=== PATIENT | female | born 1955 | race Caucasian/White ===

== ENCOUNTER 2019-05-01 16:51 | Emergency (ER) | payer SELFPAY ==
[2019-05-01 17:08] VITALS: BP 149/96; PULSE 64; RESP 16; TEMP 36.3; O2SAT 100
--- NOTE | 2019-05-01 17:30 | ED.GENADUL_ITS ---
Discharge Plan Disposition Patient Disposition: HOME Condition: Stable Discharge Details Chief Complaint: Orthopedic Clinical Impression: Patellar contusion ED Provider: Miguel Andersen Discharge Instructions Instructions: Contusion in Adults (ED) Additional Instructions: Ice to reduce pain and swelling. Bryson bandage for compression while awake and out of bed, remove at bedtime. Tylenol and/or ibuprofen as needed for pain. You may develop bruising. Return for increased discomfort or any other acute concerns. Medical Decision Making 63-year-old female slipped and fell on the ice, landing on a flexed left knee and striking her anterior patella. Since that time is a dull, achy, constant pain is worse with movement but has been able to walk. Denies other injury. She has patellar tenderness on exam but no other evidence of laxity or other injury. Referred for x-ray without evidence of acute underlying bony injury. Will treat with compression of Bryson bandage, conservative measures at home. She understands indications to seek a reevaluation. HPI General Mode of arrival: ambulatory . Date/Time Provider Initiated Documentation: 05/01/19 17:13 . Limitations to Documentation: no limitations . Information obtained by: patient . History of Present Illness 63 year old F presents to the emergency department with the chief complaint of L knee/patella pain after slip and fall, described as moderate, Quality is described as dull, and is localized to the left and lower extremity. Patient reports no radiation. Patient started experiencing this hour(s) and it has been consta nt. Rest improves symptom(s), Movement worsens symptoms . Patient notes denies chest pain, headaches, syncope and weakness. Patient did receive the following treatments prior to arrival, none Related Data Allergies Allergy/AdvReac Type Severity Reaction Status Date / Time Penicillins Allergy Severe Other (See Unverified 05/01/19 17:13 Comment) zolpidem [From Ambien] AdvReac Severe Psychosis Unverified 05/01/19 17:13 General Stated Complaint: Orthopedic FOREIGN: 4 Review of Systems Narrative: 4 systems reviewed and otherwise neg [facility] Medical History Cholecystectomy planned (Acute) Diabetes mellitus (Chronic) Fibromyalgia (Acute) Hypotension (Acute) Insomnia (Acute) Surgical History (Updated 05/01/19 @ 17:16 by Les Lerma) H/O arthroscopic knee surgery (Chronic) H/O oophorectomy (Acute) H/O: hysterectomy (Chronic) History of appendectomy (Chronic) History of lumbar fusion (Acute) History of Yessy-en-Y gastric bypass (Acute) Tubal ligation status (Acute) Tubal ligation status (Acute) Social History Smoking/Tobacco Use Status: Never Alcohol Intake: never Substance use type: does not use Exam Narrative Exam Narrative: GEN: awake, alert, oriented 3. Pleasant, well groomed, interactive. HEAD: Normocephalic, atraumatic ENT: Mucous membranes moist, oropharynx unremarkable, External ear exam unremarkable EYES: PERRL, EOMI NECK: Full ROM, no LUIS DANIEL, no menigismus Chest nontender, back nontender EXT: Full ROM, motor 5 out of 5 in the bilateral lower extremity. The left patella is tender but without crepitus. No laxity of the joint appreciated. Neuro: Grossly normal neurologic exam, conversant, interactive. Psych: Speech fluent, thoughts congruent, affect normal Course Vital Signs Vital signs: Vital Signs Temperature 36.3 C L 05/01/19 17:08 Pulse 64 05/01/19 17:08 Respiratory Rate 16 05/01/19 17:08 Blood Pressure 149/96 H 05/01/19 17:08 Pulse Oximetry 100 05/01/19 17:08 Temperature 36.3 C L 05/01/19 17:08 Temperature Source Skin 05/01/19 17:08 Pulse 64 05/01/19 17:08 Respiratory Rate 16 05/01/19 17:08 Blood Pressure 149/96 H 05/01/19 17:08 Pulse Oximetry 100 05/01/19 17:08 Oxygen Delivery Method Room Air 05/01/19 17:08 Oxygen Flow Rate 0 05/01/19 17:08 Pain Level 5 05/01/19 17:08
--- NOTE | 2019-05-01 17:51 | DI.RAD_ITS ---
EXAM: XR KNEE LT 4V AP,LAT,DEIRDRE,PAT CLINICAL HISTORY: patella pain after blunt force. TECHNIQUE: 2D digital imaging was performed. COMPARISON: No exams were available for comparison FINDINGS: BONES: No acute fracture is present. No bony destructive lesion is seen. JOINTS: The knee is normally aligned. No joint effusion is seen. SOFT TISSUE: Normal. IMPRESSION: Normal radiographs of the left knee.
--- NOTE | 2019-05-01 18:25 | DI.VRAD_ITS ---
PROCEDURE INFORMATION: Exam: XR Left Knee Exam date and time: 05/01/2019 5:51 PM Age: 63 years old Clinical indication: Other: Patella pain after blunt force TECHNIQUE: Imaging protocol: XR Left knee. Views: 4 or more views. COMPARISON: No relevant prior studies available. FINDINGS: Bones/joints: Unremarkable. Soft tissues: Unremarkable. IMPRESSION: No evidence for acute bony injury. If clinical symptoms persist recommend followup film in 7-10 days. Dictated and Authenticated by: Amirah Mariee MD. Ordering:SHANIA Rivera MD
== END 2019-05-01 18:30 | disposition home or self-care (01) ==
LOC: ER 18:34
PROVIDERS: Emergency Provider Emergency Medicine; PCP Internal Medicine
DX: S80.02XA Contusion of left knee, initial encounter (principal); W00.0XXA Fall on same level due to ice and snow, initial encounter; E11.9 Type 2 diabetes mellitus without complications
CPT/HCPCS: 99283; 73564

== ENCOUNTER 2019-05-08 06:54 | Emergency (ER) | payer MEDICARE, SELFPAY ==
[2019-05-08] VITALS (40 sets, daily range): BP systolic 109–151; BP diastolic 68–89; PULSE 54–69; RESP 10–19; TEMP 36.4; O2SAT 95–100
--- NOTE | 2019-05-08 06:58 | W.ED.GENAD ---
Discharge Plan Disposition Patient Disposition: HOME Condition: Stable Discharge Details Chief Complaint: Chest Pain Clinical Impression: Chest pain Primary Care Provider: Vickey Sanchez ED Provider: Jose M Gallego Home Meds and New Rx's Prescriptions: Continued gabapentin 600 mg Tablet 600 mg PO QID RF: 0 ropinirole 2 mg Tablet 2 mg PO QHS RF: 0 lorazepam [Ativan] 1 mg Tablet 1 mg PO BID PRNRF: 0 metaxalone [Skelaxin] 800 mg Tablet 800 mg PO TID RF: 0 Discharge Instructions Instructions: Chest Pain (ED) Additional Instructions: You have an outpatient stress test scheduled for May 10 at 2:30 PM here at [facility]. Please follow-up with your primary care physician and with an [facility] cardiology. Call cardiology to schedule outpatient follow-up. Return to the ER immediately for any worsening or new concerning symptoms. Stand Alone Forms: Work Release Referrals: Lavon Aldridge MD [MD CONSULTING PHYSICIAN] - Discharge Data Discharge Date/Time-TO BE ENTERED AT DEPARTURE: 05/08/19 11:14 Medical Decision Making <Kunal Germain MD - Last Filed: 05/08/19 20:00> Patient presenting with upper chest pressure with no associated symptoms. EKG essentially normal. Exam unremarkable other than complaint of left calf pain and mild tenderness. Has been somewhat immobile because of injury last week. No significant edema of the left lower extremity. Will place IV and get laboratory studies including troponin and d-dimer. Will give aspirin until ACS reasonably ruled out. Assuming first troponin negative then HEART score calculates at 2. Revised Labette score, if given points for the complaint of leg pain and tenderness, makes her medium probability. If d-dimer negative then will not need to pursue further testing. Patient will be signed over to oncoming physician, Dr. Gallego. 8:00 - Labs look fine. First troponin negative. D-dimer pending. CXR read pending. Lab Data Lab results reviewed: Yes I reviewed the patient's lab results. ECG Data Attestation: I personally reviewed and interpreted this ECG (s) as follows: Prior ECG tracings: not available for review Interpretation: Sinus bradycardia at a rate of 54. Normal axis and intervals. Normal ST segments. <Jose M Gallego MD - Last Filed: 05/15/19 21:56> 8:00 --care signed out by Dr. Germain with plan to follow-up on labs and disposition patient. Please see Dr. Germain's documentation regarding initial ED presentation and course. -- Repeat ECG was reviewed and interpreted by me: Sinus bradycardia 57 bpm, normal axis, low voltage precordial leads, nondiagnostic. Chest x-ray was reviewed and interpreted by radiology: No acute findings. --Labs reviewed, d-dimer was elevated, initial troponin negative. Plan to proceed to CTA of the chest. --CT of the chest to assess for pulmonary embolism was reviewed and interpreted by radiology: Hiatal hernia present, no pulmonary embolism, otherwise negative. Ultrasound of the left lower extremity was interpreted by radiology: No DVT. Patient was provided music therapy while here in the emergency department. On reassessment she noted chest discomfort was still present but was much improved. She attributes discomfort to likely anxiety. I discussed diagnostic findings with the patient. Plan will be for outpatient follow-up for stress test and with cardiology. Plan was discussed with the patient who is in agreement. --Delta troponin was negative. Disposition decision was made weighing the risks and benefits of hospitalization versus outpatient treatment, the risk for further decompensation, and the patient's wishes. The patient was stable and requested discharge. Prior to discharge, my usual and customary return precautions were reviewed with the patient - this included follow-up instructions and reason to return to the emergency department if condition worsens, does not improve as expected, or other new concerns arise. Lab Data Lab results reviewed: Yes I reviewed the patient's lab results. HPI <Kunal Germain MD - Last Filed: 05/08/19 20:00> General Mode of arrival: ambulatory. Date/Time Provider Initiated Documentation: 05/08/19 06:56. Limitations to Documentation: no limitations. Information obtained by: patient and RN notes reviewed. HPI Narrative: Patient presents to ED with complaint of chest pressure in the upper area since last night. Was worse at bedtime around 11 PM. She took her Ativan and it seemed better. Continues to be there this morning but not as severe. No radiation of pain. No associated symptoms. She did have a trauma last week where she fell and struck her patella on the ground. She had worn an immobilizer or Bryson bandage for a few days. She complains of calf pain on that side. There is no history of DVT or PE in the past. She has had cardiac caths in the past with no stents. Last cath in 2011. Related Data Home Medications Medication Instructions Recorded Confirmed gabapentin 600 mg PO QID 05/08/19 05/08/19 lorazepam [Ativan] 1 mg PO BID PRN 05/08/19 05/08/19 metaxalone [Skelaxin] 800 mg PO TID 05/08/19 05/08/19 ropinirole 2 mg PO QHS 05/08/19 05/08/19 Allergies Allergy/AdvReac Type Severity Reaction Status Date / Time Penicillins Allergy Severe Other (See Unverified 05/08/19 07:05 Comment) zolpidem [From Ambien] AdvReac Severe Psychosis Unverified 05/08/19 07:05 General FOREIGN: 4 Review of Systems <Kunal Germain MD - Last Filed: 05/08/19 20:00> Narrative: 01/08 Review of Systems completed and is negative except as stated above in HPI (Systems reviewed: Const, Eyes, ENT, Resp, CV, GI, , MSK, Skin, Neuro) PFSH <Kunal Germain MD - Last Filed: 05/08/19 20:00> Medical History (Updated 05/08/19 @ 11:10 by Jose M Gallego MD) Cholecystectomy planned (Acute) Diabetes mellitus (Chronic) Fibromyalgia (Acute) Hypotension (Acute) Insomnia (Acute) Surgical History (Updated 05/08/19 @ 06:59 by Kunal Germain MD) H/O arthroscopic knee surgery (Chronic) H/O oophorectomy (Acute) H/O: hysterectomy (Chronic) History of appendectomy (Chronic) History of lumbar fusion (Acute) History of Yessy-en-Y gastric bypass (Acute) Tubal ligation status (Acute) Social History Smoking/Tobacco Use Status: Never Alcohol Intake: never Drug use: Never Substance use type: does not use Do you feel safe at home: Yes Do you feel safe in your relationship?: Yes Exam <Kunal Germain MD - Last Filed: 05/08/19 20:00> Narrative Exam Narrative: Vitals: Afebrile. Mild bradycardia otherwise normal vitals and room air pulse oximetry. Const: Obese female in NAD. HEENT: NC/AT. Normal facial exam. Eyes: Normal conjunctiva and sclera. Neck: Supple. Trachea midline. Lungs: Normal respiratory effort. Lungs are clear. No chest wall tenderness. Cor: RRR without murmur/gallop. Good distal pulses. GI: Soft. NT/ND. No guarding or rebound. Neuro: A+O x 3. Normal speech, mentation, gait. Cranial nerves II - XII grossly intact. No gross motor or sensory deficit. Ext: No C/C/E. No significant tenderness to left calf though complains of pain. Skin: Warm and dry without rash. Sign Out <Kunal Germain MD - Last Filed: 05/08/19 20:00> Sign Out Data: Sign Out Comment: Pending d-dimer and repeat troponin. Last updated by Kunal Germain MD at 05/08/19 08:00
[2019-05-08] MEDS: Aspirin 81 MG CHEW 324 MG CH (07:23)
[2019-05-08 07:33] LABS: Absolute Eosinophil Count 0.12 k/cumm (0.0-0.7); Absolute Lymphocyte Count 1.84 k/cumm (1.2-3.4); Absolute Monocyte Count 0.34 k/cumm (0.11-0.7); Absolute Neutrophil Count 1.31 k/cumm (1.2-6.7); Eosinophils % 3.3; HCT 43.8 % (36.0-46.0); HGB 13.7 g/dL (12.0-15.5); Mean Corp. HGB Concentration 31.3 g/dL (32.0-36.0); Mean Corpuscular Hemoglobin 27.1 pg (27.0-33.0); Mean Corpuscular Volume 86.6 fL (80-95); Mean Platelet Volume 9.5 fL (8.0-11.0); Monocytes % 9.4; Neutrophils % 36.3; Platelet Count 255 x1000/uL (130-400); RBC 5.06 m/cumm (4.00-5.20); RBC Distribution Width 20.9 % (11.7-14.6); White Blood Cell Count 3.61 k/cumm (4.4-10.8)
--- NOTE | 2019-05-08 07:36 | DI.RAD_ITS ---
EXAM: XR CHEST 2V PA LATERAL INDICATION: chest pain. COMPARISON: No exams were available for comparison TECHNIQUE: 2D digital imaging was performed. FINDINGS: Heart size is normal. The lungs are clear. There is a small hiatal hernia. No rib fracture or pne umothorax is seen. There are mild degenerative changes in the thoracic spine. IMPRESSION: No acute abnormality.
[2019-05-08 07:50] LABS: ALT 15 U/L (14-59); AST 15 U/L (15-37); Albumin 3.5 g/dL (3.4-5.0); Alkaline Phosphatase 137 U/L (46-116); Anion Gap 7.5 mmol/L (3-11); BUN 8 mg/dL (7-18); Bilirubin, Total 0.2 mg/dL (0.2-1.0); CO2 29.5 mmol/L (21.0-32.0); CREATININE 0.73 mg/dL (0.55-1.02); Calcium 8.7 mg/dL (8.5-10.1); Chloride 107 mmol/L (98-107); Glucose 95 mg/dL (74-106); Magnesium 1.9 mg/dL (1.8-2.4); Potassium 3.7 mmol/L (3.5-5.1); Sodium 144 mmol/L (136-145)
[2019-05-08 07:52] LABS: Troponin I < 0.05 ng/Ml (<0.06)
[2019-05-08 07:53] LABS: Anisocytosis 2+; Diff Comment RBC Morph Reviewed
[2019-05-08 07:54] LABS: Hypochromasia 1+; Macrocytosis 1+; Microcytosis 1+; Poikilocytes 1+
--- NOTE | 2019-05-08 08:09 | DI.VRAD_ITS ---
PROCEDURE INFORMATION: Exam: XR Chest, 2 Views Exam date and time: 05/08/2019 7:37 AM Age: 63 years old Clinical indication: Chest pain TECHNIQUE: Imaging protocol: XR of the chest Views: 2 views. COMPARISON: No relevant prior studies available. FINDINGS: Lungs: Unremarkable. No consolidation. Pleural space: Unremarkable. No pleural effusion. No pneumothorax. Heart/Mediastinum: Unremarkable. No cardiomegaly. Bones/joints: Unremarkable. IMPRESSION: No acute findings. Dictated and Authenticated by: Darnell Short MD. Ordering:GAURI Syed MD
[2019-05-08 08:28] LABS: D-Dimer 1080 ng/mlFEU (<500)
--- NOTE | 2019-05-08 08:42 | NUR.NOTE ---
Nursing Note: Patient is listening to music.
--- NOTE | 2019-05-08 08:52 | DI.US_ITS ---
EXAM: US LOWER EXTREMITY VENOUS LT US LOWER EXTREMITY VENOUS LT CLINICAL HISTORY: pain. pain TECHNIQUE: Lower extremity venous ultrasound performed using grayscale, color-flow, and spectral Dop pler analysis. COMPARISON: No exams were available for comparison FINDINGS: The common femoral, femoral and popliteal veins demonstrate normal compressibility, augmentation, and color Doppler. The posterior tibial veins are patent. The saphenous vein appears free of thrombus. No Resendez's cyst or hematoma is seen. IMPRESSION: No evidence of DVT.
--- NOTE | 2019-05-08 09:19 | DI.CT_ITS ---
EXAM: CT CHEST PE CTA CLINICAL HISTORY: chest pain, left leg pain TECHNIQUE: Post IV contrast, PE protocol. Axial CT angiography was performed with multi-slice acquisition and multi-planar and/or 3D reconstruc tions. COMPARISON: XR CHEST 2V PA LATERAL from 05/08/2019 FINDINGS: The exam is mildly limited by the patient's body habitus. Pulmonary arteries are well opacified with IV contrast. No pulmonary emboli are identified. The aorta has no evident dissection. There is mil d tortuosity of the aorta. There is suture material at the stomach. A portion of the stomach project s above the diaphragm. Lungs are not well evaluated due to motion. No focal area of consolidation, pleural or pericardial effusion is seen. The patient is status post cholecystectomy. The visualize d portions of the upper abdomen are unremarkable. IMPRESSION: No evidence of pulmonary emboli or other acute abnormality. A hiatal hernia is noted.
[2019-05-08] MEDS: Omnipaque 350 MG/ML 100 ML BTL IJ (09:28)
[2019-05-08 10:34] LABS: Troponin I < 0.05 ng/Ml (<0.06)
== END 2019-05-08 11:14 | disposition home or self-care (01) ==
PROVIDERS: Emergency Medicine; Emergency Provider Student in an Organized Health Care Education/Training Program; PCP Internal Medicine
DX: R07.89 Other chest pain (principal); M79.662 Pain in left lower leg; R79.1 Abnormal coagulation profile; E11.9 Type 2 diabetes mellitus without complications
CPT/HCPCS: 36415; 71275; 80053; 93005; 99285; 71046; 83735; 84484; 85025; 85379; 93010; 93971; J3490

== ENCOUNTER 2019-05-10 01:37 | Outpatient (CLI) | payer MEDICARE, SELFPAY ==
--- NOTE | 2019-05-10 14:30 | ETT_ITS ---
APPROVED REPORT Exam: Exercise Treadmill Patient Location: Out-Patient Room/Bed: Stress Nurse: Emy Knapp RN BMI: 32.23 Baseline Rhythm: Sinus Rhythm Indications: Chest Pain. Currently described as a 4 out of 10 chest pressure. Pt is unsure if it is r elated to her Fibromyalgia and/or her anxiety. Pt took 1 mg Ativan this am for these symptoms. Pt has a history of cardiac catheterizations x2 last one done in 2011. Medical History Medical History: Angina, Anxiety, Diabetes, Heart failure Cardiac Medications: Midirine., Allergies: PCN. Ambien. Cardiac Risk Factors: DM, FHX of CAD Previous Cardiac Procedures: PCI Pretest Chest Pain Characteristics: Non-exertional Chest pain Exercise History: Indeterminate Lung Sounds: Clear to auscultation Heart Sounds: Regular Stress Test Details Test: Exercise stress testing was performed using a Ramirez protocol. Rest Stress HR Resting HR Supine: 60 bpm Max Heart Rate (APMHR): 158 bpm Resting HR Standin bpm Target HR (85% APMHR): 134 bpm Max HR Achieved: 150 bpm % of APMHR: 94 Recovery HR: 70 bpm HR response to stress: Normal HR response to stress BP Resting BP Supine: 110/62 mmHg Resting BP Standin/82 mmHg Max BP: 144/80 mmHg Recovery BP: 108/80 mmHg BP response to stress: Normal blood pressure response to stress. ECG Resting ECG: Sinus Rhythm Stress ECG: Sinus Tachycardia ST Change: Normal Arrhythmia: None Recovery ECG: Sinus Rhythm Recovery ST Change: Normal Recovery Arrhythmia: None Clinical Reason for Termination: Chest pain/Anginal equivalent Stress Symptoms: Chest pain Exercise duration: 4 min15 sec Highest Stage Reached: Stage 2: 2.5 mph at 12% grade. Exercise capacity: 6.13 METs Functional Capacity: Average Capacity Angina Score: Exercise-Limiting Stress ECG Conclusion 1. The patient exercised for 4 minutes and 15 seconds (6 METS) 2. There was no evidence of ischemia on the ECG portion of the exam. 3. The patient had exercise-induced chest pain which forced her to stop exercising. 4. The Leonardo Score (-4) estimates an annual cardiovascular mortality of 2% and a five year survival of 89%. Using the Leonardo Score there is an intermediate probability of angiographic coronary disease. Protocol Used: Ramirez Protocol Stress Test Summary STAGE Time (mins) Speed (mph) Grade (%) HR BP SYMPTOMS METS Supine 60 110/62 4 out of 10 non radiating center of chest pressure at rest. Standing 66 120/82 1 3 1.7 10 132 134/80 4.6 2 6 2.5 12 143 6 out of 10 chest pressure 7 1 min recovery 102 144/80 3 min recovery 70 122/80 6 min recovery 70 108/80 3 out of 10 chest pressure. 9 min recovery 12 min recovery
== END 2019-05-10 01:57 ==
PROVIDERS: PCP Internal Medicine; Visit Provider Student in an Organized Health Care Education/Training Program
DX: R07.9 Chest pain, unspecified (principal); I50.9 Heart failure, unspecified; I20.9 Angina pectoris, unspecified; E11.9 Type 2 diabetes mellitus without complications; Z82.49 Family history of ischemic heart disease and other diseases of the circulatory system
CPT/HCPCS: 93016; 93018; 93017

== ENCOUNTER 2019-06-02 11:29 | Emergency (ER) | payer MEDICARE, SELFPAY ==
[2019-06-02 11:32] VITALS: BP 131/80; PULSE 58; RESP 18; TEMP 36.4; O2SAT 100
--- NOTE | 2019-06-02 11:38 | ED.GENADUL_ITS ---
Discharge Plan Disposition Patient Disposition: HOME Condition: Stable Discharge Details Chief Complaint: Orthopedic Clinical Impression: Left elbow contusion, Left shoulder strain, Muscle strain of upper arm Primary Care Provider: Vickey Sanchez ED Provider: Dorothy Howell Home Meds and New Rx's Prescriptions: Continued gabapentin 600 mg Tablet 600 mg PO QID RF: 0 ropinirole 2 mg Tablet 2 mg PO QHS RF: 0 lorazepam [Ativan] 1 mg Tablet 1 mg PO BID PRNRF: 0 metaxalone [Skelaxin] 800 mg Tablet 800 mg PO TID RF: 0 midodrine 5 mg Tablet 5 mg PO TID PRNRF: 0 pantoprazole 40 mg Tablet,Delayed Release (Dr/Ec) 40 mg PO DAILY RF: 0 Discharge Instructions Instructions: Muscle Strain (ED), Contusion in Adults (ED) Additional Instructions: Continue to take your muscle relaxer as needed and directed. Rest, ice, and elevate the affected area as much as possible. Alternate tylenol and motrin as needed and directed for pain. Follow-up with your primary care doctor in 1 week as needed and for referral for orthopedics or physical therapy if needed. Return to the emergency department with any worsening or new concerning symptoms. Discharge Data Discharge Date/Time-TO BE ENTERED AT DEPARTURE: 06/02/19 13:13 Discharge Physician: Dorothy Howell Medical Decision Making 63-year-old female presents with left upper extremity pain extending from left shoulder down to left hand after fall on elbow 2 weeks ago. Patient states she had a mechanical fall in which she fell onto her knees and hit her left elbow onto the ground. She denies any knee pain. She states she has been having pain in her left elbow extending up her left upper arm and shoulder down to her left hand. She has been using icy hot with some relief. Suspect mild left elbow contusion in addition to left shoulder sprain now associated with muscle strain and spasm of left upper arm. She is neurovasc ularly intact. She has reproducible pain with range of motion of her left shoulder and elbow. There is no bony injury or evidence of infection. Patient given a dose of ibuprofen and referred for left shoulder and elbow x- rays which were negative. She is advised to continue to rest, ice and nsaids sparingly. Advised to follow-up with the primary care doctor for evaluation and for referral to orthopedics if needed and return here with any concerns. Medical Records Medical records reviewed: Yes I reviewed the patient's medical records. Imaging Data Radiologic Study: Radiologist's impression: XR Left Elbow Exam date and time: 06/02/2019 12:05 PM Age: 63 years old Clinical indication: Fall onto L elbow, R/O fracture TECHNIQUE: Imaging protocol: XR Left elbow. Views: 3 or more views. COMPARISON: No relevant prior studies available. FINDINGS: Bones/joints: No fracture. No dislocation. No anterior or posterior fat pad sign. Soft tissues: There is posterior superficial soft tissue which could be due to a contusion given the history. IMPRESSION: Soft tissue injury without osseous injury. XR Left Shoulder Exam date and time: 06/02/2019 12:02 PM Age: 63 years old Clinical indication: Other: Fall onto L elbow, pain in shoulder, R/O acute FX TECHNIQUE: Imaging protocol: XR Left shoulder. Views: 2 or more views. COMPARISON: No relevant prior studies available. FINDINGS: Bones/joints: No fracture. No dislocation. The acromioclavicular and glenohumeral joints are within normal limits. The humeral head is not elevated. Soft tissues: No acute soft tissue abnormality. IMPRESSION: No acute osseous abnormality. HPI General Mode of arrival: ambulatory . Date/Time Provider Initiated Documentation: 06/02/19 11:33 . Limitations to Documentation: no limitations . Information obtained by: patient . History of Present Illness 63 year old F presents to the emergency department with the chief complaint of L shoulder and elbow pain , Quality is described as aching, and is localized to the left and upper extremity (extending from shoulder to elbow ). Patient extremity (radiates from L shoulder down to hand). Patient started experiencing this week(s) (2) and it has been intermittent. Rest improves symptom(s), Movement worsens symptoms . Patient notes no other symptoms.. Patient did receive the following treatments prior to arrival, other (icy hot) Related Data Home Medications Medication Instructions Recorded Confirmed gabapentin 600 mg PO QID 05/08/19 06/02/19 lorazepam [Ativan] 1 mg PO BID PRN 05/08/19 06/02/19 metaxalone [Skelaxin] 800 mg PO TID 05/08/19 06/02/19 ropinirole 2 mg PO QHS 05/08/19 06/02/19 midodrine 5 mg PO TID PRN 06/02/19 06/02/19 pantoprazole 40 mg PO DAILY 06/02/19 06/02/19 Allergies Allergy/AdvReac Type Severity Reaction Status Date / Time Penicillins Allergy Severe Other (See Unverified 06/02/19 11:36 Comment) zolpidem [From Ambien] AdvReac Severe Psychosis Unverified 06/02/19 11:36 General Stated Complaint: Orthopedic FOREIGN: 4 Review of Systems All systems reviewed & are unremarkable except as noted in HPI and below PFSH Medical History (Updated 06/02/19 @ 12:19 by Dorothy Howell DO) Cholecystectomy planned (Acute) Diabetes mellitus (Chronic) Fibromyalgia (Acute) Hypotension (Acute) Insomnia (Acute) Surgical History (Updated 05/08/19 @ 06:59 by Kunal Germain MD) H/O arthroscopic knee surgery (Chronic) H/O oophorectomy (Acute) H/O: hysterectomy (Chronic) History of appendectomy (Chronic) History of lumbar fusion (Acute) History of Yessy-en-Y gastric bypass (Acute) Tubal ligation status (Acute) Social History Smoking/Tobacco Use Status: Never Alcohol Intake: never Drug use: Never Substance use type: does not use Do you feel safe at home: Yes Do you feel safe in your relationship?: Yes Exam Const General: cooperative, healthy appearing and no acute distress HENMT Head: normal to inspection Mouth: oral mucosae normal Eyes General: appearance normal, both eyes and all related structures Neck Neck: normal visual inspection Resp Effort & Inspection: normal respiratory effort and able to speak in complete sentences Cardio Rate: regular rate Skin General skin exam: no rashes or lesions noted Neuro General: alert, awake and oriented x3 Other: Motor/sensory of radial/median/ulnar nerves grossly intact. Muscle strength 5/5 left upper extremity. Extrem Other: Pain in left shoulder and elbow with range of motion. Tenderness to palpation of left anterior shoulder and overlying L medial epicondyle and olecranon. Left radial and ulnar pulses intact. No bony deformity, crepitus, erythema, ecchymosis or edema noted. Psych Appearance: grossly normal Affect: normal affect Course Vital Signs Vital signs: Vital Signs Temperature 97.5 F L 06/02/19 11:32 Pulse 58 L 06/02/19 11:32 Respiratory Rate 18 06/02/19 11:32 Blood Pressure 131/80 06/02/19 11:32 Pulse Oximetry 100 06/02/19 11:32 Temperature 97.5 F L 06/02/19 11:32 Temperature Source Temporal Artery Scan 06/02/19 11:32 Pulse 58 L 06/02/19 11:32 Respiratory Rate 18 06/02/19 11:32 Respiratory Effort Non-Labored 06/02/19 11:35 Blood Pressure 131/80 06/02/19 11:32 Blood Pressure Position Sitting 06/02/19 11:32 Pulse Oximetry 100 06/02/19 11:32 Oxygen Delivery Method Room Air 06/02/19 11:32 Oxygen Flow Rate 0 06/02/19 11:32 Pain Level 4 06/02/19 11:32
--- NOTE | 2019-06-02 11:45 | DI.RAD_ITS ---
EXAM: XR SHOULDER LT COMPLETE 2+V CLINICAL HISTORY: fall onto L elbow, pain in shoulder r/o acute fx. TECHNIQUE: 2D digital imaging was performed. COMPARISON: No exams were available for comparison FINDINGS: BONES: No acute fracture is present. No bony destructive lesion is seen. JOINTS: No dislocation present. SOFT TISSUE: Normal. IMPRESSION: No acute fracture or dislocation of the left shoulder. DATA REPOSITORY: RADIATION DOSE DELIVERED:
[2019-06-02] MEDS: Ibuprofen 600 MG TAB PO (11:58)
--- NOTE | 2019-06-02 12:12 | DI.RAD_ITS ---
EXAM: XR ELBOW LT COMPLETE CLINICAL HISTORY: fall onto L elbow, r/o fracture. TECHNIQUE: 2D digital imaging was performed. COMPARISON: No exams were available for comparison FINDINGS: BONES: No acute fracture is present. No bony destructive lesion is seen. JOINTS: The elbow is normally aligned. No joint effusion is seen. SOFT TISSUE: Normal. IMPRESSION: No acute fracture or dislocation of the left elbow. DATA REPOSITORY: RADIATION DOSE DELIVERED:
--- NOTE | 2019-06-02 12:42 | DI.VRAD_ITS ---
PROCEDURE INFORMATION: Exam: XR Left Elbow Exam date and time: 06/02/2019 12:05 PM Age: 63 years old Clinical indication: Fall onto L elbow, R/O fracture TECHNIQUE: Imaging protocol: XR Left elbow. Views: 3 or more views. COMPARISON: No relevant prior studies available. FINDINGS: Bones/joints: No fracture. No dislocation. No anterior or posterior fat pad sign. Soft tissues: There is posterior superficial soft tissue which could be due to a contusion given the history. IMPRESSION: Soft tissue injury without osseous injury. Dictated and Authenticated by: Sathya Breaux MD. Ordering:MAXI De La Cruz MD
--- NOTE | 2019-06-02 12:43 | DI.VRAD_ITS ---
PROCEDURE INFORMATION: Exam: XR Left Shoulder Exam date and time: 06/02/2019 12:02 PM Age: 63 years old Clinical indication: Other: Fall onto L elbow, pain in shoulder, R/O acute FX TECHNIQUE: Imaging protocol: XR Left shoulder. Views: 2 or more views. COMPARISON: No relevant prior studies available. FINDINGS: Bones/joints: No fracture. No dislocation. The acromioclavicular and glenohumeral joints are within normal limits. The humeral head is not elevated. Soft tissues: No acute soft tissue abnormality. IMPRESSION: No acute osseous abnormality. Dictated and Authenticated by: Sathya Breaux MD. Ordering:MAXI De La Cruz MD
[2019-06-02 13:13] VITALS: BP 119/69; PULSE 51; RESP 16; TEMP 36.2; O2SAT 98
== END 2019-06-02 13:13 | disposition home or self-care (01) ==
PROVIDERS: Emergency Provider Physician Assistant; PCP Internal Medicine
DX: S50.02XA Contusion of left elbow, initial encounter (principal); S46.911A Strain of unspecified muscle, fascia and tendon at shoulder and upper arm level, right arm, initial encounter; E11.9 Type 2 diabetes mellitus without complications
CPT/HCPCS: 99284; 73030; 73080